=== PATIENT | male | born 1960 | race Caucasian/White ===

== ENCOUNTER → 2016-08-11 | Day surgery (SDC) | payer MEDICARE ==
[~2016-08-11] MED LIST: AMOXIL500 M1 PO; CYMBALTA30 MG PO; EFFEXOR75 M1 PO; FLEXERIL PO; FLEXERIL10 MG PO; GABAPENTIN400 M2 PO; HYDROCODON-ACE1 EAC5 PO; HYDROCODON-ACE1 EAC7 PO; KLONOPIN2 MG PO; LORTAB 10-5001 EACH PO; LORTAB 5/500 TA1 TA1 PO; MEDROL PO; NAPROSYN500 MG PO; NAPROXEN PO; NEURONTIN300 MG PO; PEN-VEE K PO; PREDNISONE PO; ROBAXIN500 MG PO; ZANAFLEX4 M1 PO
--- NOTE | ~2016-08-11 | OR ---
Unit #: [id number] #: [id number] Patient: JARVIS PEDERSEN [id number] [address] [place], [place] [address] [id number] MR#: [id number] NAME: JARVIS PEDERSEN ROOM: Date of Procedure: 08/11/2016 Admission Date: 08/11/2016 Surgeon: Kam Miranda M.D. : 1960 Attending Physician: Kam Miranda M.D. Primary Care Physician: Kenroy Alvarado M.D. OPERATIVE REPORT PREOPERATIVE DIAGNOSES 1. Degenerative lumbar disk disease with myelopathy. 2. Back pain. 3. Radiculopathy. POSTOPERATIVE DIAGNOSES 1. Degenerative lumbar disk disease with myelopathy. 2. Back pain. 3. Radiculopathy. PROCEDURE PERFORMED Lumbar epidural steroid injection with intravenous sedation and fluoroscopic guidance for needle localization. INDICATIONS FOR PROCEDURE The patient is a 56-year-old male, who has return of back and right lower extremity radicular pain to his ankle. He gets some spasms in his back, which has been worsening recently. In the past, he had done very well with single epidural steroid injection given about 10 months of 75% improvement. Last injection was done about 3 months ago. He did very well initially with 90% settling for about 10 weeks. Over the last few weeks, the pain has come back a bit, it is not back quite where it was. Based on history, pathology, symptomatology, response and options available, we are going to proceed with a repeat injection at this point. DESCRIPTION OF PROCEDURE The patient was placed in a seated position. Standard monitors were applied. 2 mg of Versed were given for sedation and anxiolysis, which were adequate. Vital signs remained stable. Sterile prep and drape then of lumbar area was performed. The skin at the L4-L5 level was localized with 1% lidocaine. An 18-gauge STYLHUNTtead needle was then advanced via loss of resistance technique and fluoroscopic guidance in toward the epidural space. The patient did not complain of pain or paresthesia. After confirming proper positioning with fluoroscopy and radiographic contrast, 80 mg of Depo-Medrol and 4 mL of 0.125% bupivacaine were deposited. The patient tolerated the procedure otherwise well and was discharged to the recovery room in stable condition. Dictated by... Kam Miranda M.D. Unit #: [id number] #: [id number] Patient: JARVIS PEDERSEN BENITO/karma TD: 08/11/2016 22:41 JOB #: [id number] OPERATIVE REPORT X Kam Miranda MD X PROCEDURE OPERATIVE NOTE
== END | disposition home or self-care (01) ==
LOC: CCSC 07:34
DX: M51.06 Intervertebral disc disorders with myelopathy, lumbar region (principal); M51.16 Intervertebral disc disorders with radiculopathy, lumbar region
CPT/HCPCS: J1040; J2250